=== PATIENT | male | born 1955 | race Two or more races ===

== ENCOUNTER 2020-09-29 07:00 | Inpatient (IN) ==
[2020-09-29] MEDS ORDERED: methylPREDNISolone SOD SUC 125 MG/2 ML VIAL IV STA (07:22)
[2020-09-29] MEDS ORDERED: MORPHINE 4 MG/1 ML VIAL IV STA (07:22)
[2020-09-29] MEDS ORDERED: ALBUTEROL NEB SOLN 5 MG/ML 20 ML/BOTTLE CONT NEB SCH (07:30)
[2020-09-29 07:46] LABS: Basophils # 0.1 10*3/uL (0.0-0.2); Eosinophils # 0.9 10*3/uL (0.0-0.87); Eosinophils % 12.8 % (0.00-10.9); Hematocrit 45.8 VOL% (42.0-52.0); Hemoglobin 14.2 GM/DL (14.0-18.0); Immature Granulocytes % 0.1 %; Immature Granulocytes Absolute 0.01 #; Lymphocytes % 27.8 % (21.2-54.2); Mean Corpuscular Volume 98.7 FL (87-102); Mean Platelet Volume 9.5 FL (9.6-12.0); Monocytes % 9.3 % (1.7-12.7); Platelet Count 369 T/CUMM (130-400); Red Blood Count 4.64 MC/CUMM (3.8-5.5); Red Cell Distribution Width 15.9 % (9.3-17.3); White Blood Count 7.1 T/CUMM (4-12)
[2020-09-29 08:07] LABS: Anisocytosis 1+; Eosinophils 15 % (0-10); Lymphocytes 32 % (20-55); Macrocytosis Slight; Metamyelocytes 1 %; Platelet Estimate Normal; Segmented Neutrophils 43 % (50-85); Total Cells Counted 100
[2020-09-29 08:17] LABS: Albumin 3.2 G/DL (3.4-5.0); Bilirubin,Total 0.4 MG/DL (0.2-1.0); Calcium 8.5 MG/DL (8.5-10.1); Osmolality,Calculated 280.1 MOS/KG (273-304); Potassium 3.1 MMOL/L (3.5-5.1); Total Protein 6.8 G/DL (5.0-7.5)
[2020-09-29] MEDS ORDERED: ONDANSETRON 4 MG/2 ML VIAL IV PRN (10:56)
[2020-09-29] MEDS ORDERED: MORPHINE 4 MG/1 ML VIAL IV PRN (10:56)
[2020-09-29] MEDS ORDERED: DEXTROSE 50% 25 GM/50 ML VIAL IV PRN (10:56)
[2020-09-29] MEDS ORDERED: DOCUSATE SODIUM 100 MG CAPSULE PO PRN (10:56)
[2020-09-29] MEDS ORDERED: GLUCAGON 1 MG VIAL IM PRN (10:56)
[2020-09-29] MEDS ORDERED: hydrALAZINE 20 MG/1 ML VIAL IV PRN (10:56)
[2020-09-29] MEDS ORDERED: ACETAMINOPHEN 325 MG TABLET PO PRN (10:56)
[2020-09-29] MEDS ORDERED: POTASSIUM CHLORIDE 20 MEQ TABLET PO PRN (11:00)
[2020-09-29] MEDS ORDERED: MAGNESIUM SULF RIDER 2 GM in PREMIX 1 EACH IV ONE (11:00)
[2020-09-29 11:29] LABS: Bilirubin,Urine Negative (Negative); Blood, Urine Small mg/dL (Negative); Glucose,Urine (UA) Negative (Negative); Ketones,Urine Negative (Negative); Mucus,Urine Occasional /LPF (Occasional); Nitrite,Urine Negative (Negative); Protein,Urine Negative; RBC,Urine <1 /HPF (0-4); Urine Appearance CLEAR (Clear); Urine Color Yellow (Yellow); Urine Specific Gravity 1.011 (1.001-1.035); Urine Urobilinogen < 2.0 EU/DL (0.2-1.0)
[2020-09-29] MEDS: ALBUTEROL 2.5 MG/3 ML NEB RESP TX SCH ×2 (13:40→20:18)
[2020-09-29] MEDS: ASPIRIN EC 81 MG TABLET PO SCH (14:32)
[2020-09-29] MEDS: DILTIAZEM CD 120 MG CAPSULE PO SCH (14:32)
[2020-09-29] MEDS: methylPREDNISolone SOD SUC 125 MG/2 ML VIAL IV SCH ×2 (14:33→23:42)
[2020-09-29 14:52] LABS: Troponin I < 0.015 NG/ML (0.00-0.045)
[2020-09-29] MEDS: ENOXAPARIN 80 MG/0.8 ML SYRINGE SUBCUT SCH (17:04)
[2020-09-29 17:19] LABS: Troponin I < 0.015 NG/ML (0.00-0.045)
[2020-09-29] MEDS ORDERED: POTASSIUM CHLORIDE 20 MEQ/15 ML UDCUP PO ONE (17:41)
[2020-09-29 19:47] LABS: Troponin I < 0.015 NG/ML (0.00-0.045)
[2020-09-29] MEDS: guaiFENesin/DM ER 600-30 MG TABLET PO SCH (21:11)
[2020-09-29] MEDS: ATORVASTATIN 40 MG TABLET PO SCH (21:12)
[2020-09-29] MEDS: MONTELUKAST 10 MG TABLET PO SCH (21:13)
[2020-09-29] MEDS: FLUTICASONE/SALMETEROL 500-50 DISKUS 14 DOSE INH SCH (21:55)
[2020-09-30] MEDS: ALBUTEROL 2.5 MG/3 ML NEB RESP TX SCH ×4 (03:10→19:44)
[2020-09-30] MEDS: ENOXAPARIN 80 MG/0.8 ML SYRINGE SUBCUT SCH (05:40)
[2020-09-30 06:14] LABS: Basophils % 0.3 % (0.0-0.8); Hematocrit 43.2 VOL% (42.0-52.0); Hemoglobin 13.3 GM/DL (14.0-18.0); Immature Granulocytes % 0.6 %; Immature Granulocytes Absolute 0.08 #; Lymphocytes # 1.3 10*3/uL (1.4-4.0); Lymphocytes % 9.4 % (21.2-54.2); Mean Corpuscular HGB Conc 30.8 GM/DL (32-36); Mean Corpuscular Volume 99.3 FL (87-102); Mean Platelet Volume 9.7 FL (9.6-12.0); Monocytes % 3.4 % (1.7-12.7); Neutrophils % 86.3 % (38.7-73.9); Platelet Count 341 T/CUMM (130-400); Red Blood Count 4.35 MC/CUMM (3.8-5.5); Red Cell Distribution Width 15.8 % (9.3-17.3); White Blood Count 14.1 T/CUMM (4-12)
[2020-09-30 06:38] LABS: Calcium 8.5 MG/DL (8.5-10.1); Osmolality,Calculated 285.1 MOS/KG (273-304); Potassium 4.2 MMOL/L (3.5-5.1); Risk Ratio 4.33; VLDL CHOLESTEROL 15.6 MG/DL
[2020-09-30] MEDS: DILTIAZEM CD 120 MG CAPSULE PO SCH (08:29)
[2020-09-30] MEDS: ASPIRIN EC 81 MG TABLET PO SCH (08:29)
[2020-09-30] MEDS: FLUTICASONE/SALMETEROL 500-50 DISKUS 14 DOSE INH SCH ×2 (08:30→21:31)
[2020-09-30] MEDS: methylPREDNISolone SOD SUC 125 MG/2 ML VIAL IV SCH ×2 (08:31→14:25)
[2020-09-30] MEDS: guaiFENesin/DM ER 600-30 MG TABLET PO SCH ×2 (08:31→21:30)
[2020-09-30] MEDS: PANTOPRAZOLE 40 MG TABLET PO SCH (08:31)
[2020-09-30 08:42] LABS: Anisocytosis Slight; Band Neutrophils 14 % (0-10); Lymphocytes 14 % (20-55); Macrocytosis 1+; Platelet Estimate Normal; Segmented Neutrophils 69 % (50-85); Total Cells Counted 100
[2020-09-30] MEDS ORDERED: ALBUTEROL INHALER 18 GM INH PRN (10:58)
[2020-09-30] MEDS: AZITHROMYCIN 250 MG TABLET PO SCH (12:24)
[2020-09-30] MEDS: diphenhydrAMINE CAP 25 MG CAPSULE PO PRN ×2 (14:25→21:30)
[2020-09-30] MEDS: MONTELUKAST 10 MG TABLET PO SCH (21:29)
[2020-09-30] MEDS: ATORVASTATIN 40 MG TABLET PO SCH (21:30)
[2020-10-01] MEDS: ALBUTEROL 2.5 MG/3 ML NEB RESP TX SCH ×4 (01:10→19:00)
[2020-10-01] MEDS: methylPREDNISolone SOD SUC 125 MG/2 ML VIAL IV SCH ×2 (03:21→15:28)
[2020-10-01] MEDS: diphenhydrAMINE CAP 25 MG CAPSULE PO PRN ×2 (03:23→10:35)
[2020-10-01] MEDS: ENOXAPARIN 40 MG/0.4 ML SYRINGE SUBCUT SCH (05:51)
[2020-10-01 06:11] LABS: Hematocrit 41.8 VOL% (42.0-52.0); Hemoglobin 13.1 GM/DL (14.0-18.0); Immature Granulocytes % 0.9 %; Immature Granulocytes Absolute 0.19 #; Lymphocytes # 1.1 10*3/uL (1.4-4.0); Lymphocytes % 5.1 % (21.2-54.2); Mean Corpuscular HGB Conc 31.3 GM/DL (32-36); Mean Corpuscular Volume 98.6 FL (87-102); Mean Platelet Volume 9.5 FL (9.6-12.0); Monocytes % 4.1 % (1.7-12.7); Neutrophils % 89.9 % (38.7-73.9); Platelet Count 340 T/CUMM (130-400); Red Blood Count 4.24 MC/CUMM (3.8-5.5); Red Cell Distribution Width 15.9 % (9.3-17.3); White Blood Count 20.7 T/CUMM (4-12)
[2020-10-01 06:30] LABS: Band Neutrophils 2 % (0-10); Lymphocytes 7 % (20-55); Platelet Estimate Adequate; Segmented Neutrophils 89 % (50-85); Total Cells Counted 100
[2020-10-01 06:40] LABS: Calcium 8.1 MG/DL (8.5-10.1); Potassium 3.8 MMOL/L (3.5-5.1)
[2020-10-01] MEDS: guaiFENesin/DM ER 600-30 MG TABLET PO SCH ×2 (10:35→23:01)
[2020-10-01] MEDS: ASPIRIN EC 81 MG TABLET PO SCH (10:35)
[2020-10-01] MEDS: AZITHROMYCIN 250 MG TABLET PO SCH (10:35)
[2020-10-01] MEDS: DILTIAZEM CD 120 MG CAPSULE PO SCH (10:36)
[2020-10-01] MEDS: FLUTICASONE/SALMETEROL 500-50 DISKUS 14 DOSE INH SCH ×2 (10:36→23:01)
[2020-10-01] MEDS: PANTOPRAZOLE 40 MG TABLET PO SCH (10:36)
[2020-10-01] MEDS: ATORVASTATIN 40 MG TABLET PO SCH (23:01)
[2020-10-01] MEDS: MONTELUKAST 10 MG TABLET PO SCH (23:01)
[2020-10-02] MEDS: ALBUTEROL 2.5 MG/3 ML NEB RESP TX SCH ×2 (00:30→08:00)
[2020-10-02] MEDS: methylPREDNISolone SOD SUC 125 MG/2 ML VIAL IV SCH (02:47)
[2020-10-02] MEDS: diphenhydrAMINE CAP 25 MG CAPSULE PO PRN ×2 (05:31→10:51)
[2020-10-02 05:50] LABS: Basophils % 0.2 % (0.0-0.8); Hematocrit 45.5 VOL% (42.0-52.0); Immature Granulocytes % 0.9 %; Immature Granulocytes Absolute 0.18 #; Lymphocytes # 1.2 10*3/uL (1.4-4.0); Lymphocytes % 6.2 % (21.2-54.2); Mean Corpuscular HGB Conc 30.8 GM/DL (32-36); Mean Corpuscular Volume 99.1 FL (87-102); Mean Platelet Volume 10.2 FL (9.6-12.0); Monocytes % 5.4 % (1.7-12.7); Neutrophils % 87.3 % (38.7-73.9); Platelet Count 337 T/CUMM (130-400); Red Blood Count 4.59 MC/CUMM (3.8-5.5); Red Cell Distribution Width 16.2 % (9.3-17.3); White Blood Count 19.5 T/CUMM (4-12)
[2020-10-02 06:00] LABS: Calcium 8.4 MG/DL (8.5-10.1); Osmolality,Calculated 295.4 MOS/KG (273-304); Potassium 4.1 MMOL/L (3.5-5.1)
[2020-10-02] MEDS: ENOXAPARIN 40 MG/0.4 ML SYRINGE SUBCUT SCH (06:04)
[2020-10-02 08:23] VITALS: BP 150/73
[2020-10-02] MEDS: ASPIRIN EC 81 MG TABLET PO SCH (08:50)
[2020-10-02] MEDS: AZITHROMYCIN 250 MG TABLET PO SCH (08:50)
[2020-10-02] MEDS: DILTIAZEM CD 120 MG CAPSULE PO SCH (08:50)
[2020-10-02] MEDS: PANTOPRAZOLE 40 MG TABLET PO SCH (08:50)
[2020-10-02] MEDS: FLUTICASONE/SALMETEROL 500-50 DISKUS 14 DOSE INH SCH (08:51)
[2020-10-02] MEDS: guaiFENesin/DM ER 600-30 MG TABLET PO SCH (08:51)
== END 2020-10-02 12:15 | disposition home or self-care (01) | DRG 202 ==
LOC: N.ED 07:00 → N.EDINP 10:56 → N.TELEN 12:15
PROVIDERS: ADMIT Internal Medicine; ATTEND Internal Medicine